=== PATIENT | male | born 1965 | race Caucasian/White ===

== ENCOUNTER → 2016-11-27 | Outpatient (CLI) | payer OTHER ==
--- NOTE | 2016-11-27 11:07 | US ---
EXAMINATION TYPE: US abdomen complete DATE OF EXAM: 11/27/2016 10:26 AM COMPARISON: NONE CLINICAL HISTORY: R94.5 Increased Liver Function. h/o diabetes, high BP and high cholesterol EXAM MEASUREMENTS: Liver Length: 18.1 cm Gallbladder Wall: 0.2 cm CBD: 0.4 cm Spleen: 10.5 cm Right Kidney: 13.4 x 5.3 x7.0 cm Left Kidney: 14.0 x 7.7 x 6.5 cm cm TECHNOLOGIST IMPRESSION: minimally enlarged, attenuating liver parenchyma indicative of fatty infilt rate. Pancreas: Obscured by bowel gas Liver: Increased attenuation, decreased visualization of vessels suggestive of fatty infiltrate Gallbladder: No stones seen Evidence for sonographic Agarwal's sign: no CBD: wnl Spleen: wnl Right Kidney: No hydronephrosis or masses seen Left Kidney: No hydronephrosis or masses seen Upper IVC: not well visualized Abd Aorta: Obscured by overlying bowel gas The visualized liver is heterogeneous. No worrisome intrahepatic ductal dilatation is seen. Evaluatio n for masses is limited due to the heterogeneity. The intrahepatic portion of the IVC and proximal ab dominal aorta are within normal limits. There is no evidence of cholelithiasis. Common bile duct is unremarkable. The visualized portions of the pancreas are blanca. Majority of pancreas is obscured by overlying bowel gas. The spleen is unremarkable. Kidneys are symmetric and free of hydronephrosis . No renal lesions are seen. IMPRESSION: Heterogeneity of liver could reflect diffuse fatty infiltration or product of underlying hepatocellular disease. Imaging guided random biopsy for tissue analysis can be performed if desired.
== END | disposition home or self-care (01) ==
LOC: RADUSWWP 10:00
PROVIDERS: ATTEND Family Medicine
DX: R94.5 Abnormal results of liver function studies (principal)
CPT/HCPCS: 76700

== ENCOUNTER → 2017-02-23 | Outpatient (CLI) | payer OTHER ==
--- NOTE | 2017-02-23 13:08 | XR ---
Cervical spine Limited HISTORY: Shoulder pain 3 views of the cervical spine on 4 images No comparisons There is loss of normal cervical lordosis. Anterolisthesis grade 1 C2-3, C3-4, C4-5 and C5-6.. Disc s paces are relatively maintained, mild disc height loss at C5-6. Prevertebral soft tissues are normal. IMPRESSION: Degenerative disc disease. Loss of lordosis may be due to muscle spasm.
== END | disposition home or self-care (01) ==
LOC: RADXRMAIN 12:21
PROVIDERS: ATTEND Family Medicine
DX: M50.10 Cervical disc disorder with radiculopathy, unspecified cervical region (principal); M40.56 Lordosis, unspecified, lumbar region
CPT/HCPCS: 72040

== ENCOUNTER → 2017-10-05 | Outpatient (CLI) | payer OTHER ==
--- NOTE | 2017-10-05 09:18 | US ---
EXAMINATION TYPE: US prostate transrectal DATE OF EXAM: 10/05/2017 COMPARISON: NONE CLINICAL HISTORY: R97.20 elevated PSA. This examination was performed using the transrectal probe. EXAM MEASUREMENTS: Gland Size: 5.1 x 2.8 x 5.0cm Volume: 36.7 Predicted PSA: 4.4 Actual PSA (if available):4.1 Heterogeneous gland, no distinct mass seen. IMPRESSION: Glandular enlargement without suspicious lesion identified at this time. Predicted PSA = volume x 0.12 ng/ml Calculated Volume = 0.5236 x L x W x H
== END | disposition home or self-care (01) ==
LOC: RADUSMAIN 07:43
PROVIDERS: ATTEND Family Medicine
DX: N40.0 Benign prostatic hyperplasia without lower urinary tract symptoms (principal)
CPT/HCPCS: 76872

== ENCOUNTER 2017-10-07 06:57 | Day surgery (SDC) | payer OTHER ==
[2017-10-05 14:11] VITALS: BMI 30.8
[~2017-10-07 06:57] MED LIST: LACTATED RINGERS 1,000 ML IV SCH; LIDOCAINE 1% 20 ML VIAL (10MG/ML) FOR IV START INTRADERMA PRN
[2017-10-07 07:36] VITALS: RESP 16; TEMP 97.1
[2017-10-07] MEDS ORDERED: LIDOCAINE 1% 20 ML VIAL (10MG/ML) FOR IV START INTRADERMA ONE (07:52)
[2017-10-07] MEDS ORDERED: PROPOFOL 10 MG/ML 20 ML VIAL IV ONE (07:55)
[2017-10-07] MEDS ORDERED: MIDAZOLAM 2 MG/2 ML VIAL ONE (07:55)
[2017-10-07] MEDS ORDERED: fentaNYL (PF) 50 MCG/ML 2 ML AMP ONE (07:55)
[2017-10-07 07:57] LABS: Glucose,Whole Blood 88 mg/dL (75-99)
--- NOTE | 2017-10-07 08:11 | P.PCN ---
Date of Procedure: 10/07/17 Procedure(s) Performed: BRIEF HISTORY: Patient is a 52-year-old pleasant white male, scheduled for an elective colonoscopy as a part of screening for colonic neoplasia. PROCEDURE PERFORMED: Colonoscopy. PREOPERATIVE DIAGNOSIS: Screening for colon cancer. IV sedation per Anesthesia. PROCEDURE: After informed consent was obtained, the patient, was brought into the endoscopy unit. IV sedation was administered by Anesthesia under continuous monitoring. Digital rectal examination was normal. Initially the Olympus CF- 160 flexible video colonoscope was then inserted in the rectum, gradually advanced into the cecum without any difficulty. Careful examination was performed as the scope was gradually being withdrawn. Ileocecal valve and the appendiceal orifice were visualized and appeared normal. Prep was excellent. Mucosa of the cecum, ascending colon, transverse colon, descending colon, sigmoid colon, and rectum appeared normal. Retroflexion was performed in the rectum and no lesions were seen. The patient tolerated the procedure well. IMPRESSION: Normal-appearing colon from rectum to cecum with no evidence of colorectal neoplasia. RECOMMENDATIONS: Findings of this examination were discussed with the patient as well as his family. He was advised to have a repeat screening colonoscopy in 10 years.
[2017-10-07 08:34] VITALS: BP 123/81; PULSE 68
== END 2017-10-07 08:57 | disposition home or self-care (01) ==
LOC: ORWHC2ENDO 06:57
PROVIDERS: ATTEND Internal Medicine Gastroenterology
DX: Z12.11 Encounter for screening for malignant neoplasm of colon (principal); I10 Essential (primary) hypertension; E11.9 Type 2 diabetes mellitus without complications; E78.5 Hyperlipidemia, unspecified; F17.210 Nicotine dependence, cigarettes, uncomplicated; K21.9 Gastro-esophageal reflux disease without esophagitis; Z79.899 Other long term (current) drug therapy; Z79.84 Long term (current) use of oral hypoglycemic drugs
CPT/HCPCS: J2250; J3010; J2704; G0121

== ENCOUNTER → 2017-10-09 | Outpatient (CLI) | payer OTHER ==
--- NOTE | 2017-10-09 14:37 | MR ---
EXAMINATION TYPE: MR cervical spine wo con DATE OF EXAM: 10/09/2017 COMPARISON: Plain film 02/23/2017 HISTORY: Radiculopathy Cervical region TECHNIQUE: Multiplanar, multisequence images of the cervical spine were acquired. C2-C3: No evidence for degenerative disc disease. No disc bulge/herniation or protrusion. No Canal stenosis. Foramina are patent bilaterally. C3-C4: Right-sided foraminal encroachment is present due to lateral extension endplate disc complex. Broad-based disc bulge causes only mild anterior mass effect on the thecal sac. C4-C5: Small central posterior disc bulge causes slight anterior mass effect on the thecal sac. No si gnificant foraminal encroachment. C5-C6: Lateral extension of endplate disc complex causes mild bilateral foraminal encroachment. Small central disc bulge causes only minimal anterior mass effect on the thecal sac. C6-C7: Mild bilateral foraminal encroachment is present. No significant central stenosis or sizable d isc herniation. C7-T1: No evidence for degenerative disc disease. No disc bulge/herniation or protrusion. No Canal stenosis. Foramina are patent bilaterally. Cervical segments are intact. There is normal alignment. Cervical spinal cord is of normal signal. Craniovertebral junction relationships are within normal limits. There is multilevel spondylosis. S ome endplate discogenic marrow signal changes noted. IMPRESSION: Mild degenerative disc disease as described.
== END | disposition home or self-care (01) ==
LOC: RADMRIMAIN 09:35
PROVIDERS: ATTEND Family Medicine
DX: M50.10 Cervical disc disorder with radiculopathy, unspecified cervical region (principal)
CPT/HCPCS: 72141

== ENCOUNTER → 2019-06-10 | Outpatient (CLI) | payer OTHER ==
[~2019-06-10] MED LIST changes: -LACTATED RINGERS 1,000 ML IV SCH; -LIDOCAINE 1% 20 ML VIAL (10MG/ML) FOR IV START INTRADERMA PRN; +REGADENOSON 0.4 MG/5 ML SYRINGE IV ONE
--- NOTE | 2019-06-10 12:05 | NM ---
EXAMINATION TYPE: NM stress lexiscan cardiolite DATE OF EXAM: 06/10/2019 COMPARISON: NONE HISTORY: Chest pain TECHNIQUE: After the intravenous administration of 9.5 mCi Tc 99m Sestamibi - Cardiolite resting SPE CT images acquired 60 minutes post injection. The patient received 0.4mg Lexiscan, 26.4 mCi Tc 99m Sestamibi - Stress images obtained [address] injection FINDINGS: Review of stress and rest SPECT images demonstrates no distinct perfusion abnormality. Gated analysi s shows normal wall motion with an estimated left ventricular ejection fraction of 60 %. IMPRESSION: No scintigraphic evidence for reversible ischemia.
--- NOTE | 2019-06-10 12:06 | EST ---
EXERCISE STRESS AGE: 54 SEX: M HT: 5'10" WT: 235 PROTOCOL: Lexiscan Cardiolite Stress Test HEART RATE REST: 60 BLOOD PRESSURE REST: 136/77 MAXIMUM HEART RATE ACHIEVED: 90 MAXIMUM BLOOD PRESSURE: 142/75 85% MPHR: 142 100% MPHR: 167 INDICATIONS: Chest pain. CLINICAL INFORMATION: Baseline rhythm is sinus mechanism, rate of 60, normal axis intervals, normal echocardiogram. Baseline blood pressure 136/77 mmHg. Patient received an injection of Lexiscan. Electrocardiograph monitoring revealed no evidence of diagnostic ischemic ST deviation. Cardiolite was injected per protocol. CONCLUSION: 1. Nondiagnostic electrocardiograph stress testing. 2. Nuclear images will be reported separately. MMODL / IJN: [id number] /
== END ==
LOC: RADNMMAIN 07:45
PROVIDERS: ATTEND Family Medicine
DX: R07.9 Chest pain, unspecified (principal)
CPT/HCPCS: 93017; 78452; A9500; J2785

== ENCOUNTER 2020-11-24 22:39 | Emergency (ER) | payer OTHER ==
[2020-11-24 22:44] VITALS: BP 168/96; PULSE 82; RESP 18; TEMP 98.3
[2020-11-24] MEDS ORDERED: ACET/COD 300 MG/30 MG STARTER PACK 6 TAB BTL PO STA (23:22)
[2020-11-24] MEDS ORDERED: KETOROLAC 15 MG/ML 1 ML VIAL IM STA (23:22)
--- NOTE | 2020-11-24 23:45 | ED ---
ENT HPI - General Chief complaint: Dental/Oral Stated complaint: Tooth pain Time Seen by Provider: 11/24/20 22:51 Source: patient Mode of arrival: ambulatory Limitations: no limitations - History of Present Illness Initial comments: Patient is a 55-year-old male presenting to emergency Department with complaints of lower left-sided dental pain that began increasing throughout today. Patient states he had a root canal done on Thursday, 4 days ago, they stated that there was an infection in there and gave him a prescription for amoxicillin to start if he started having some discomfort. Patient states he just started that prescription today. He states he tried Tylenol and Motrin at home without improvement in his symptoms. He did try called his dentist over their close until Thursday. He denies any fever or chills, no nausea or vomiting. He has no further complaints. - Related Data Home Medications Medication Instructions Recorded Confirmed Atorvastatin [Lipitor] 20 mg PO HS 08/23/14 10/05/17 Meloxicam [Mobic] 15 mg PO DAILY 08/23/14 10/05/17 Omeprazole [PriLOSEC] 40 mg PO HS 08/23/14 10/05/17 Empagliflozin [Jardiance] 25 mg PO DAILY 10/05/17 10/05/17 Losartan [Cozaar] 50 mg PO HS 10/05/17 10/05/17 sitaGLIPtin PHOS/metFORMIN HCL 1 each PO BID-W/MEALS 10/05/17 10/05/17 [Janumet 50-1,000 mg Tablet] Previous Rx's Medication Instructions Recorded HYDROcodone/APAP 5-325MG [[place] 1 tab PO Q6HR PRN 3 Days #12 tab 11/24/20 5-325] Allergies Allergy/AdvReac Type Severity Reaction Status Date / Time No Known Allergies Allergy Verified 11/24/20 22:44 Review of Systems ROS Statement: Those systems with pertinent positive or pertinent negative responses have been documented in the HPI. ROS Other: All systems not noted in ROS Statement are negative. Past Medical History Past Medical History: Diabetes Mellitus, GERD/Reflux, Hearing Disorder / Deafness, Hyperlipidemia, Hypertension, Osteoarthritis (OA) Additional Past Medical History / Comment(s): HEARING LOSS RT EAR. History of Any Multi-Drug Resistant Organisms: None Reported Past Surgical History: Orthopedic Surgery Additional Past Surgical History / Comment(s): LT KNEE ARTHROSCOPY Past Anesthesia/Blood Transfusion Reactions: No Reported Reaction Past Psychological History: No Psychological Hx Reported Smoking Status: Never smoker Past Alcohol Use History: Occasional Past Drug Use History: None Reported - Past Family History Father Family Medical History: Deep Vein Thrombosis (DVT), Hypertension Mother Family Medical History: Cancer, Diabetes Mellitus, Memory Impairment General Exam - General Exam Comments Initial Comments: GENERAL: Patient is well-developed and well-nourished. Patient is nontoxic and in no acute distress. HEAD: Atraumatic, normocephalic. EYES: Pupils equal round and reactive to light, extraocular movements intact, sclera anicteric, conjunctiva are normal. Eyelids were unremarkable. ENT: Nares patent, oropharynx clear without exudates. Moist mucous membranes. Recent dental procedure on left lower tooth, no signs of a dental abscess. NECK: Normal range of motion, supple without lymphadenopathy or JVD. LUNGS: Unlabored respirations. Breath sounds clear to auscultation bilaterally and equal. No wheezes rales or rhonchi. HEART: Regular rate and rhythm without murmurs, rubs or gallops. ABDOMEN: Soft, nontender, normoactive bowel sounds. No guarding, no rebound. No masses appreciated. : Deferred MUSCULOSKELETAL: Normal extremities with adequate strength and normal range of motion, no pitting or edema. No clubbing or cyanosis. NEUROLOGICAL: Patient is alert and oriented x 3. Normal speech, normal gait. PSYCH: Normal mood, normal affect. SKIN: Warm, Dry, normal turgor, no rashes or lesions noted. Limitations: no limitations Course Vital Signs 11/24/20 22:40 Temperature 98.3 F Pulse Rate 82 Respiratory 18 Rate Blood Pressure 168/96 O2 Sat by Pulse 96 Oximetry Medical Decision Making - Medical Decision Making Patient is a 55-year-old male here for left lower dental pain has been increasing throughout today. He had root canal performed 4 days ago, he was started on amoxicillin today for possible infection. There are no visible dental abscess seen on exam. I discussed with patient that he should continue with amoxicillin, I will give him a Toradol shot today for pain as well as pain medication to go home with. I recommend following up with his dentist on Thursday. Patient is stable for discharge. Patient is in agreement with this plan of care. Return parameters were discussed with the patient and they verbalized understanding. Case discussed with Dr. Conde. Disposition Clinical Impression: Toothache Disposition: HOME SELF-CARE Condition: Stable Instructions (If sedation given, give patient instructions): Toothache (ED) Additional Instructions: Please return to the Emergency Department if symptoms worsen or any other concerns. Continue with your already prescribed antibiotic. Recommend ice the area, alternate between Tylenol and Motrin for pain relief. May take [place] for more severe pain. Follow-up with your dentist. Prescriptions: HYDROcodone/APAP 5-325MG [[place] 5-325] 1 tab PO Q6HR PRN 3 Days #12 tab PRN Reason: Pain Is patient prescribed a controlled substance at d/c from ED?: Yes When asked, does pt state using other controlled substances?: No If prescribed controlled substance>3 days was MAPS reviewed?: Prescribed <3 Days If opioid is for acute pain is fill amount 7 days or less?: Yes If Rx opioid, was Start Talking consent form obtained?: Yes Referrals: Andrea Birmingham MD [Primary Care Provider] - 1-2 days
== END 2020-11-25 00:01 | disposition home or self-care (01) ==
LOC: EC 22:39
DX: K08.89 Other specified disorders of teeth and supporting structures (principal); I10 Essential (primary) hypertension; E11.9 Type 2 diabetes mellitus without complications; K21.9 Gastro-esophageal reflux disease without esophagitis; M19.90 Unspecified osteoarthritis, unspecified site; E78.5 Hyperlipidemia, unspecified; H91.91 Unspecified hearing loss, right ear; Z79.1 Long term (current) use of non-steroidal anti-inflammatories (NSAID); Z79.899 Other long term (current) drug therapy; Z79.84 Long term (current) use of oral hypoglycemic drugs
CPT/HCPCS: 99283; 96372; J1885

== ENCOUNTER → 2020-12-21 | Outpatient (CLI) | payer BC ==
--- NOTE | 2020-12-23 14:10 | US ---
EXAMINATION TYPE: US prostate transrectal DATE OF EXAM: 12/21/2020 COMPARISON: US CLINICAL HISTORY: R97.20 elevated PS;. Night time frequency per patient. This examination was performed using the transrectal probe. EXAM MEASUREMENTS: Gland Size: 4.9 x 4.3 x 4.0cm Volume: 44.3ml Predicted PSA: 5.31ng/ml Actual PSA (if available):6.7ng/ml Enlarged prostate is noted as volume is >30.0ml. Multiple Central Gland calcifications are seen. Cent ral Gland cyst is seen = 0.5 x 0.5 x 0.3cm. In Peripheral Zone left Base a small area of ectasia is n oted. Predicted PSA value is less than the actual PSA which can be suspicious for prostate cancer. IMPRESSION: 1. Hypoechoic area within the central gland region may be suspicious. Additional workup for prostate cancer is recommended. Predicted PSA = volume x 0.12 ng/ml Calculated Volume = 0.5236 x L x W x H
== END | disposition home or self-care (01) ==
LOC: RADUSWWP 08:49
PROVIDERS: ATTEND Nurse Practitioner Adult Health
DX: C61 Malignant neoplasm of prostate (principal)
CPT/HCPCS: 76872

== ENCOUNTER 2021-06-07 07:33 | Day surgery (SDC) | payer BC ==
[2021-06-04 15:19] VITALS: BMI 33.7
[~2021-06-07 07:33] MED LIST changes: +LACTATED RINGERS 1,000 ML IV SCH; -REGADENOSON 0.4 MG/5 ML SYRINGE IV ONE
[2021-06-07 08:05] LABS: Glucose,Whole Blood 131 mg/dL (75-99)
[2021-06-07 08:07] VITALS: TEMP 97
--- NOTE | 2021-06-07 08:29 | P.GSHP ---
History of Present Illness H&P Date: 06/07/21 Chief Complaint: GERD This a 56-year-old male presents safer EGD. Patient has had complaints of GERD. Past Medical History Past Medical History: Diabetes Mellitus, GERD/Reflux, Hearing Disorder / Deafness, Hyperlipidemia, Hypertension, Osteoarthritis (OA), Pneumonia Additional Past Medical History / Comment(s): HEARING LOSS RT EAR, hx ulcer, hiatal hernia, History of Any Multi-Drug Resistant Organisms: None Reported Past Surgical History: Joint Replacement, Orthopedic Surgery Additional Past Surgical History / Comment(s): LT KNEE ARTHROSCOPY, left hip replacement, Past Anesthesia/Blood Transfusion Reactions: No Reported Reaction Smoking Status: Former smoker - Past Family History Father Family Medical History: Deep Vein Thrombosis (DVT) Mother Family Medical History: Cancer, Diabetes Mellitus, Memory Impairment Medications and Allergies Home Medications Medication Instructions Recorded Confirmed Type Atorvastatin [Lipitor] 20 mg PO QAM 08/23/14 06/04/21 History Omeprazole [PriLOSEC] 40 mg PO HS 08/23/14 06/04/21 History Empagliflozin [Jardiance] 25 mg PO HS 10/05/17 06/04/21 History Losartan [Cozaar] 50 mg PO HS 10/05/17 06/04/21 History sitaGLIPtin PHOS/metFORMIN HCL 1 each PO BID-W/MEALS 10/05/17 06/04/21 History [Janumet 50-1,000 mg Tablet] Celecoxib [CeleBREX] 100 mg PO BID 06/04/21 06/04/21 History Diclofenac Sodium [Voltaren] 75 mg PO HS 06/04/21 06/04/21 History Gabapentin 300 mg PO HS 06/04/21 06/04/21 History traMADol HCL [Ultram] 50 mg PO HS PRN 06/04/21 06/04/21 History Allergies Allergy/AdvReac Type Severity Reaction Status Date / Time No Known Allergies Allergy Verified 06/04/21 15:06 Surgical - Exam Vital Signs Temp Pulse Resp BP Pulse Ox 97.0 F L 67 15 157/90 95 06/07/21 07:55 06/07/21 07:55 06/07/21 07:55 06/07/21 07:55 06/07/21 07:55 - General well developed, well nourished, no distress - Eyes PERRL - ENT normal pinna - Neck no masses - Respiratory normal expansion - Cardiovascular Rhythm: regular - Abdomen Abdomen: soft, non tender Results - Labs Abnormal Lab Results - Last 24 Hours (Table) 06/07/21 Range/Units 08:02 POC Glucose (mg/dL) 131 H (75-99) mg/dL Assessment and Plan Assessment: GERD. We'll perform EGD.
[2021-06-07] MEDS ORDERED: PROPOFOL 10 MG/ML 20 ML VIAL IV ONE (08:32)
--- NOTE | 2021-06-07 08:41 | P.OP ---
Date of Procedure: 06/07/21 Preoperative Diagnosis: GERD Postoperative Diagnosis: Antral gastritis Sliding hiatal hernia Mild esophagitis Procedure(s) Performed: EGD Anesthesia: MAC Surgeon: Karl Meza Pathology: other (Antrum, esophagus) Condition: stable Disposition: PACU Description of Procedure: The patient's placed on the endoscopy table in the lateral position. He received IV sedation. The gastroscope placed oropharynx past esophagus and stomach. Scope then placed through the pylorus. First and second portion du odenum appeared normal. Scope was then brought back the antrum this appeared mildly inflamed. A biopsies performed. The scope was unretroflexed and remainder of the stomach appeared normal. There was a small sliding hiatal hernia. The GE junction was at 38 cm. The distal esophagus inflamed. A biopsy performed. The proximal esophagus appeared normal. Scope was withdrawn for patient.
[2021-06-07 08:48] VITALS: RESP 16
[2021-06-07 09:12] VITALS: BP 133/85; PULSE 61
== END 2021-06-07 09:30 | disposition home or self-care (01) ==
LOC: ORWHC2ENDO 07:33
PROVIDERS: ATTEND Surgery
DX: K21.00 Gastro-esophageal reflux disease with esophagitis, without bleeding (principal); K31.9 Disease of stomach and duodenum, unspecified; K44.9 Diaphragmatic hernia without obstruction or gangrene; M19.90 Unspecified osteoarthritis, unspecified site; I10 Essential (primary) hypertension; H91.90 Unspecified hearing loss, unspecified ear; E11.9 Type 2 diabetes mellitus without complications; Z79.84 Long term (current) use of oral hypoglycemic drugs; E78.5 Hyperlipidemia, unspecified; Z79.1 Long term (current) use of non-steroidal anti-inflammatories (NSAID); Z83.3 Family history of diabetes mellitus; Z87.891 Personal history of nicotine dependence; Z79.899 Other long term (current) drug therapy
CPT/HCPCS: 43239; 88305; J2704

== ENCOUNTER → 2021-06-13 | Outpatient (CLI) | payer BC ==
[2021-06-13 17:22] LABS: Basophils # (A) 0.1 k/uL (0-0.2); Basophils % (A) 1 %; Eosinophils # (A) 0.4 k/uL (0-0.7); Eosinophils % (A) 5 %; HGB 17.3 gm/dL (13.0-17.5); Lymphocytes # (A) 2.8 k/uL (1.0-4.8); Lymphocytes % (A) 37 %; MCHC 33.2 g/dL (31.0-37.0); MCV 96.3 fL (80.0-100.0); Monocytes # (A) 0.6 k/uL (0-1.0); Monocytes % (A) 8 %; Neutrophils # (A) 3.6 k/uL (1.3-7.7); Neutrophils % (A) 46 %; Platelet Count 260 k/uL (150-450); RDW 12.1 % (11.5-15.5); WBC 7.7 k/uL (3.8-10.6)
== END | disposition home or self-care (01) ==
LOC: LABPAT 16:25
PROVIDERS: ATTEND Surgery
DX: Z01.818 Encounter for other preprocedural examination (principal); K21.00 Gastro-esophageal reflux disease with esophagitis, without bleeding
CPT/HCPCS: 85025; 86850; 86900; 86901; 93005

== ENCOUNTER 2021-06-18 07:33 | Inpatient (IN) | payer BC ==
[~2021-06-18 07:33] MED LIST changes: +ACETAMINOPHEN TAB 500 MG TAB PO PRN; +DEXAMETHASONE SOD PHOSPHATE 4 MG/ML 1 ML VIAL IV ONE; +HEPARIN SODIUM,PORCINE/PF 5,000 UNIT/0.5 ML SYRINGE SQ PRN; +HYDROmorphone 0.5 MG/0.5 ML SYRINGE IVP PRN; -LACTATED RINGERS 1,000 ML IV SCH; +ONDANSETRON 4 MG/2 ML VIAL IVP ONE
[2021-06-18 08:23] LABS: Glucose,Whole Blood 153 mg/dL (75-99)
[2021-06-18] MEDS: LACTATED RINGERS 1,000 ML IV SCH (08:23)
[2021-06-18] MEDS ORDERED: LIDOCAINE 1% (10MG/ML) FOR IV START INTRADERMA ONE (08:23)
--- NOTE | 2021-06-18 09:20 | P.GSHP ---
History of Present Illness H&P Date: 06/18/21 Chief Complaint: GERD This a 56-year-old male referred from Dr. Birmingham.The patient has had long- standing problems with reflux esophagitis. The patient underwent recent EGD is found have evidence of esophagitis. Patient has been well informed on the proce dure of laparoscopic Jeramie fundoplication. The patient is aware the risk of the conversion to the open procedure, risk of injury to the stomach, liver and spleen. The patient is also a risk of recurrent GERD and dysphagia symptoms. The patient understands there is a postoperative diet of full liquids for 2 weeks after surgery. Past Medical History Past Medical History: Diabetes Mellitus, GERD/Reflux, Hearing Disorder / Deafness, Hyperlipidemia, Hypertension, Osteoarthritis (OA), Pneumonia Additional Past Medical History / Comment(s): HEARING LOSS RT EAR, hx ulcer, hiatal hernia, History of Any Multi-Drug Resistant Organisms: None Reported Past Surgical History: Joint Replacement, Orthopedic Surgery Additional Past Surgical History / Comment(s): LT KNEE ARTHROSCOPY, left hip replacement, EGD Past Anesthesia/Blood Transfusion Reactions: No Reported Reaction Smoking Status: Former smoker - Past Family History Father Family Medical History: Deep Vein Thrombosis (DVT) Mother Family Medical History: Cancer, Diabetes Mellitus, Memory Impairment Medications and Allergies Home Medications Medication Instructions Recorded Confirmed Type Atorvastatin [Lipitor] 20 mg PO QAM 08/23/14 06/18/21 History Omeprazole [PriLOSEC] 40 mg PO HS 08/23/14 06/18/21 History Empagliflozin [Jardiance] 25 mg PO DAILY 10/05/17 06/18/21 History Losartan [Cozaar] 50 mg PO HS 10/05/17 06/18/21 History sitaGLIPtin PHOS/metFORMIN HCL 1 each PO BID-W/MEALS 10/05/17 06/18/21 History [Janumet 50-1,000 mg Tablet] Celecoxib [CeleBREX] 100 mg PO DAILY 06/04/21 06/18/21 History Diclofenac Sodium [Voltaren] 75 mg PO HS 06/04/21 06/18/21 History Gabapentin 300 mg PO HS 06/04/21 06/18/21 History traMADol HCL [Ultram] 50 mg PO HS PRN 06/04/21 06/18/21 History Allergies Allergy/AdvReac Type Severity Reaction Status Date / Time No Known Allergies Allergy Verified 06/14/21 14:34 Surgical - Exam Vital Signs Temp Pulse Resp BP Pulse Ox 96.0 F L 74 16 147/93 98 06/18/21 08:16 06/18/21 08:16 06/18/21 08:16 06/18/21 08:16 06/18/21 08:16 - General well developed, well nourished, no distress - Eyes PERRL - ENT normal pinna - Neck no masses - Respiratory normal expansion - Cardiovascular Rhythm: regular - Abdomen Abdomen: soft, non tender Results - Labs Abnormal Lab Results - Last 24 Hours (Table) 06/18/21 Range/Units 08:20 POC Glucose (mg/dL) 153 H (75-99) mg/dL Assessment and Plan Assessment: GERD. We'll perform laparoscopic Jeramie fundal plication.
[2021-06-18] MEDS ORDERED: GLYCOPYRROLATE 0.2 MG/ML 2 ML VIAL ONE (09:46)
[2021-06-18] MEDS ORDERED: PROPOFOL 10 MG/ML 20 ML VIAL IV ONE (09:46)
[2021-06-18] MEDS ORDERED: fentaNYL (PF) 50 MCG/ML 2 ML AMP ONE (09:46)
[2021-06-18] MEDS ORDERED: MIDAZOLAM 2 MG/2 ML VIAL ONE (09:46)
[2021-06-18] MEDS ORDERED: KETOROLAC 15 MG/ML 1 ML VIAL ONE (09:46)
[2021-06-18] MEDS ORDERED: LIDOCAINE 1% INJ 10MG/ML (20 ML MDV) ONE (09:46)
[2021-06-18] MEDS ORDERED: SUCCINYLCHOLINE CHLORIDE 100 MG/5 ML SYR IV ONE (09:46)
[2021-06-18] MEDS ORDERED: KETAMINE 10 MG/ML 20 ML VIAL ONE (09:46)
[2021-06-18] MEDS ORDERED: NEOSTIGMINE 1 MG/ML 10 ML VIAL ONE (09:46)
[2021-06-18] MEDS ORDERED: ROCURONIUM 10 MG/ML (5 ML VIAL) IV ONE (09:46)
[2021-06-18] MEDS ORDERED: HYDROmorphone (PF) 1 MG/ML ONE (09:46)
[2021-06-18] MEDS ORDERED: BUPIVACAINE (PF) 0.25% 30 ML VIAL SQ ONE (10:12)
[2021-06-18] MEDS ORDERED: LACTATED RINGERS 1,000 ML IV ONE (10:18)
[2021-06-18] MEDS ORDERED: ONDANSETRON 4 MG/2 ML VIAL IVP PRN (10:57)
--- NOTE | 2021-06-18 10:57 | P.OP ---
Date of Procedure: 06/18/21 Preoperative Diagnosis: GERD Postoperative Diagnosis: GERD Procedure(s) Performed: Laparoscopic Jeramie fundoplication Anesthesia: SHIRA Surgeon: Karl Meza Estimated Blood Loss (ml): 5 Pathology: none sent Condition: stable Disposition: PACU Description of Procedure: The patient was placed on the operating table. The patient received a general endotracheal tube anesthesia. The patients abdomen was prepped and draped in the usual sterile fashion. Through an infraumbilical stab incision, the fascia of the anterior abdominal wall was grasped with a pair of Kochers and then the Veress needle was placed in the peritoneal cavity. Position of the Veress needle was confirmed with positive drop test. The abdomen was then insufflated. After adequate insufflation, the 10 mm trocar was placed in the peritoneal cavity. Following this the laparoscope was placed in the peritoneal cavity. The patient was placed in the head-up, right side up position and then a 5 mm trocar was placed in the right lateral and right subcostal position under direct visualization. A 8 mm trocar was placed in the epigastric position. The gallbladder was grasped in the fundus and infundibulum. Traction on the gallbladder was placed in the lateral and the cephalad positions. The triangle of Calot was visualized.. The cystic duct was bluntly dissected until the union of the cystic duct and common bile duct was seen. A critical view of safety was achieved. The cystic duct was then divided and sealed with the Harmonic scissors. A PDS Endoloop was then placed throughout the cystic duct stump. The cystic artery divided and sealed with the Harmonic scissors. The gallbladder was then removed from the liver bed using Harmonic scissors. The gallbladder was then extracted through the epigastric port site. Operative field was checked for any bleeding spots and Harmonic scissors was used to coagulate the liver bed. The abdomen was irrigated. The trocars were removed. The skin was closed using interrupted 3-0 Vicryl suture. Dermabond dressing were applied. The patient tolerated the procedure well.
[2021-06-18] MEDS ORDERED: D5-0.45% NACL WITH KCL 20MEQ/L 1,000 ML IV SCH (13:00)
[2021-06-18] MEDS: METOCLOPRAMIDE 5 MG/ML 2 ML VIAL IVP SCH ×2 (13:21→18:11)
--- NOTE | 2021-06-18 13:26 | P.CONS ---
History of Present Illness - Reason for Consult Consult date: 06/18/21 Medical Management Requesting physician: Karl Meza - History of Present Illness History of Presenting Illness: Patient is a 56-year-old male with a past medical history of hypertension, hyperlipidemia, [id number] diabetes mellitus type 2, GERD, and reflux esophagitis. Patient is currently admitted under Gen. surgery team with Dr. Meza status post undergoing a laparoscopic Irineo fundoplication. We have been consulted to follow along with patient for continued medical management. Upon bedside examination patient currently postoperative and reports feeling great. He denies having any pains or complaints. He denies having any difficulties swallowing, experiencing any nausea or vomiting, or having any abd ominal pain. Patient has been tolerating clear liquids. Patient denies history of DVTs or PEs. Denies any recent fevers or exposure to known ill contacts, diaphoresis, chills, headache, lightheadedness, dizziness, chest pain, palpitations, shortness of breath, or experiencing any numbness/tingling/weakness in his extremities. Review of systems: Pertinent positives and negatives as discussed in HPI, a complete review of systems was performed and all other systems are negative. Physical exam: Vital signs reviewed and stable. General: Nontoxic, no distress and appears stated age. Derm: Skin warm and dry, normal coloration for ethnicity. Head: Atraumatic, normocephalic and symmetric. Eyes: EOMs intact, no lid lag, and anicteric sclera Mouth: no lip lesions, mucus membranes moist Cardiovascular: regular rate and rhythm with normal S1S2, no murmur, positive posterior tibial pulses bilaterally, and cap refill < 2 seconds. Lungs: Respirations even, regular, and unlabored on room air. Lungs CTA bilaterally, no rhonchi, no rales, no wheezing, and no accessory muscle usage. Abdominal: soft, nontender to palpation, no guarding, no appreciable organomegaly. Ext: ROM intact. No gross muscle atrophy, no edema, no contractures Neuro: Speech clear, face symmetrical and CN II-XII grossly intact with no noted focal neuro deficits Psych: Alert and oriented to person, place, time, and situation. Appropriate and pleasant affect. Assessment and Plan of Care: Status post undergoing a laparoscopic Irineo fundoplication secondary to reflux esophagitis -Management per primary admitting general surgery team with Dr. Meza. -DVT prophylaxis with Lovenox. -We will follow along and continue to monitor closely with repeat a.m. labs. Hypertension -Monitor vital signs and continue daily medication regimen with losartan. Hyperlipidemia -Continue daily medication regimen with atorvastatin. Ths-nzzupav-bzfismrdg diabetes mellitus type 2 Hold oral glycemic medications metformin and Jardiance and place patient on glycemic protocol with NovoLog sliding scale. GERD -Continue daily medication regimen with omeprazole 40 mg nightly. Thank you for allowing us to participate in the care of this pleasant patient. Do not hesitate to contact us with questions. Someone can be reached from the [facility] hospitalist group all hours of the day at [phone] or via [employer]. Past Medical History Past Medical History: Diabetes Mellitus, GERD/Reflux, Hearing Disorder / Deafness, Hyperlipidemia, Hypertension, Osteoarthritis (OA), Pneumonia Additional Past Medical History / Comment(s): HEARING LOSS RT EAR, hx ulcer, hiatal hernia, History of Any Multi-Drug Resistant Organisms: None Reported Past Surgical History: Joint Replacement, Orthopedic Surgery Additional Past Surgical History / Comment(s): LT KNEE ARTHROSCOPY, left hip replacement, EGD Past Anesthesia/Blood Transfusion Reactions: No Reported Reaction Smoking Status: Former smoker - Past Family History Father Family Medical History: Deep Vein Thrombosis (DVT) Mother Family Medical History: Cancer, Diabetes Mellitus, Memory Impairment Medications and Allergies Home Medications Medication Instructions Recorded Confirmed Type Atorvastatin [Lipitor] 20 mg PO QAM 08/23/14 06/18/21 History Omeprazole [PriLOSEC] 40 mg PO HS 08/23/14 06/18/21 History Empagliflozin [Jardiance] 25 mg PO DAILY 10/05/17 06/18/21 History Losartan [Cozaar] 50 mg PO HS 10/05/17 06/18/21 History sitaGLIPtin PHOS/metFORMIN HCL 1 each PO BID-W/MEALS 10/05/17 06/18/21 History [Janumet 50-1,000 mg Tablet] Celecoxib [CeleBREX] 100 mg PO DAILY 06/04/21 06/18/21 History Diclofenac Sodium [Voltaren] 75 mg PO HS 06/04/21 06/18/21 History Gabapentin 300 mg PO HS 06/04/21 06/18/21 History traMADol HCL [Ultram] 50 mg PO HS PRN 06/04/21 06/18/21 History Allergies Allergy/AdvReac Type Severity Reaction Status Date / Time No Known Allergies Allergy Verified 06/14/21 14:34 Physical Exam Vitals: Vital Signs Temp Pulse Pulse Resp BP Pulse Ox 06/18/21 11:47 45 L 16 125/79 99 06/18/21 11:32 47 L 16 134/77 98 06/18/21 11:16 45 L 16 123/74 97 06/18/21 11:00 48 L 16 122/68 97 06/18/21 10:54 97.2 F L 55 L 16 155/76 94 L 06/18/21 08:16 96.0 F L 74 16 147/93 98 Intake and Output 06/17/21 06/18/21 06/18/21 22:59 06:59 14:59 Intake Total 1350 Output Total 10 Balance 1340 Intake: IV 1350 Output: Estimated Blood Loss 10 Other: Weight 99 kg Results Labs: Abnormal Lab Results - Last 24 Hours (Table) 06/18/21 Range/Units 08:20 POC Glucose (mg/dL) 153 H (75-99) mg/dL
[2021-06-18 14:29] VITALS: BMI 31.3
[2021-06-18] MEDS: HYDROmorphone 1 MG/ML 1 ML SYRINGE IVP PRN ×2 (15:37→21:50)
[2021-06-18] MEDS: SODIUM CHLORIDE 0.9% 1,000 ML IV SCH (15:38)
--- NOTE | 2021-06-18 15:41 | FL ---
EXAMINATION TYPE: FL esophagus cervic/pharynx DATE OF EXAM: 06/18/2021 LIMITED UGI-ESOPHAGRAM: CLINICAL HISTORY: Hiatal hernia and reflux, Fundoplication surgery earlier today. TECHNIQUE: Limited esophagram is performed utilizing 25 oz of Isovue-370. A total of 10 seconds of f luoroscopic time was utilized during procedure and 13 images obtained. FINDINGS: The patient swallowed contrast without difficulty or delay. Esophageal peristalsis and mo tility are within normal limits. There is good flow of contrast along the diaphragmatic hiatus into t he stomach, there is no evidence of contrast extravasation to suggest leak. No persistent hiatal dick ia is seen. Patient remains asymptomatic. Tiny amount of free air is noted below diaphragm presumed p ostsurgical. IMPRESSION: No evidence of leak or significant obstruction status post Irineo fundoplication surgery earlier today.
[2021-06-18 16:38] LABS: Glucose,Whole Blood 208 mg/dL (75-99)
[2021-06-18] MEDS: INSULIN ASPART (NovoLOG) 100 UNIT/ML VIAL SQ SCH ×2 (18:11→21:52)
[2021-06-18 20:18] LABS: Glucose,Whole Blood 153 mg/dL (75-99)
[2021-06-18] MEDS ORDERED: LOSARTAN 50 MG TAB PO SCH (21:00)
[2021-06-18] MEDS ORDERED: PANTOPRAZOLE 40 MG TABLET PO SCH (21:00)
[2021-06-18] MEDS ORDERED: GABAPENTIN 300 MG CAP PO SCH (21:00)
[2021-06-19] MEDS: METOCLOPRAMIDE 5 MG/ML 2 ML VIAL IVP SCH ×3 (00:34→12:28)
[2021-06-19] MEDS: HYDROmorphone 1 MG/ML 1 ML SYRINGE IVP PRN (05:31)
[2021-06-19 06:44] LABS: ALT 110 U/L (4-49); AST 60 U/L (17-59); African American GFR (CKD) >90 (>60 ml/min/1.73 sqM); Albumin 3.9 g/dL (3.5-5.0); Albumin/Globulin Ratio 1.6; Alkaline Phosphatase 52 U/L (38-126); Anion Gap 11 mmol/L; Blood Urea Nitrogen 14 mg/dL (9-20); Calcium 8.7 mg/dL (8.4-10.2); Carbon Dioxide 23 mmol/L (22-30); Chloride 104 mmol/L (98-107); Globulin 2.4 g/dL; Glucose 117 mg/dL (74-99); Non-African American GFR(CKD) >90 (>60 ml/min/1.73 sqM); Sodium 138 mmol/L (137-145); Total Bilirubin 0.8 mg/dL (0.2-1.3); Total Protein 6.3 g/dL (6.3-8.2)
[2021-06-19 06:51] LABS: Glucose,Whole Blood 114 mg/dL (75-99)
[2021-06-19] MEDS: INSULIN ASPART (NovoLOG) 100 UNIT/ML VIAL SQ SCH ×2 (07:28→11:37)
[2021-06-19] MEDS: SODIUM CHLORIDE 0.9% 1,000 ML IV SCH ×2 (07:32→07:33)
[2021-06-19] MEDS: LACTATED RINGERS 1,000 ML IV SCH (07:32)
[2021-06-19 07:44] VITALS: BP 120/74; PULSE 65; RESP 18; TEMP 98
[2021-06-19] MEDS ORDERED: ATORVASTATIN 20 MG TAB PO SCH (09:00)
[2021-06-19] MEDS ORDERED: ENOXAPARIN 40 MG/0.4 ML SYRINGE SQ SCH (09:00)
[2021-06-19 11:33] LABS: Glucose,Whole Blood 123 mg/dL (75-99)
--- NOTE | 2021-06-19 12:22 | P.PN ---
Subjective Progress Note Date: 06/19/21 Pt doing well s/p fundoplication. No acid reflux symptoms, tolerating PO. Medically cleared for discharge. Objective - Vital Signs Vital signs: Vital Signs Temp 98.0 F 06/19/21 07:44 Pulse 65 06/19/21 07:44 Resp 18 06/19/21 07:44 BP 120/74 06/19/21 07:44 Pulse Ox 96 06/19/21 07:44 Intake & Output 06/18/21 06/19/21 06/19/21 18:59 06:59 18:59 Intake Total 1350 Output Total 10 Balance 1340 Weight 99 kg Intake: IV 1350 Output: Estimated Blood Loss 10 Other: # Voids 1 3 2 - Exam Gen: awake, alert HEENT: normocephalic, atraumatic, good hearing acuity, moist mucous membranes Resp: good air exchange, breathing comfortably with no accessory muscle use CVS: good distal perfusion x 4, GI: soft, NTTP, ND : no SPT, no CVAT, verma catheter not present MSK: no pitting edema, no clubbing Neuro: non-focal, moving all extremities Psych: cooperative, euthymic mood - Labs CBC & Chem 7: 06/19/21 05:33 Labs: Abnormal Lab Results - Last 24 Hours (Table) 06/18/21 06/18/21 06/19/21 Range/Units 16:36 20:16 05:33 Glucose 117 H (74-99) mg/dL POC Glucose (mg/dL) 208 H 153 H (75-99) mg/dL AST 60 H (17-59) U/L ALT 110 H (4-49) U/L 06/19/21 06/19/21 Range/Units 06:49 11:31 Glucose (74-99) mg/dL POC Glucose (mg/dL) 114 H 123 H (75-99) mg/dL AST (17-59) U/L ALT (4-49) U/L Assessment and Plan Assessment: Status post undergoing a laparoscopic Irineo fundoplication secondary to reflux esophagitis -Management per primary admitting general surgery team with Dr. Meza. -DVT prophylaxis with Lovenox. -We will follow along and continue to monitor closely with repeat a.m. labs. Hypertension -Monitor vital signs and continue daily medication regimen with losartan. Hyperlipidemia -Continue daily medication regimen with atorvastatin. Ift-kletdrr-kupysxoyp diabetes mellitus type 2 Hold oral glycemic medications metformin and Jardiance and place patient on glycemic protocol with NovoLog sliding scale. GERD -Continue daily medication regimen with omeprazole 40 mg nightly.
--- NOTE | 2021-06-19 12:33 | P.DS ---
Providers Date of admission: 06/18/21 07:33 Expected date of discharge: 06/19/21 Attending physician: Karl Meza Consults: 06/18/21 10:57 Consult Physician Routine Consulting Provider: Jeannette Jaime Consult Reason/Comments: Medical management Do you want consulting provider notified?: Yes Primary care physician: Andrea Coleman [facility] Course: Discharge diagnosis 1. GERD status post laparoscopic Jeramie fundoplication Hospital course This is a 56-year-old male with known history of GERD he is now status post laparoscopic Jeramie fundoplication. Patient tolerated surgery well. His pain is controlled. Upper GI showed no evidence of leak or obstruction. He is tolerating diet. He is up and ambulating. He is having flatus and BM. He is afebrile. He is stable for discharge. Please refer to chart for any further details. Physician Clinical Nurse Leader note has been reviewed by physician. Signing provider agrees with the documented findings, assessment, and plan of care. Patient Condition at Discharge: Stable Plan - Discharge Summary Discharge Rx Participant: Yes New Discharge Prescriptions: New traMADol HCL [Ultram] 50 mg PO Q8HR PRN 3 Days #9 tab PRN Reason: Pain Continue Omeprazole [PriLOSEC] 40 mg PO HS Atorvastatin [Lipitor] 20 mg PO QAM sitaGLIPtin PHOS/metFORMIN HCL [Janumet 50-1,000 mg Tablet] 1 each PO BID- W/MEALS Losartan [Cozaar] 50 mg PO HS Empagliflozin [Jardiance] 25 mg PO DAILY Gabapentin 300 mg PO HS Discontinued traMADol HCL [Ultram] 50 mg PO HS PRN PRN Reason: Pain No Action Diclofenac Sodium [Voltaren] 75 mg PO HS Celecoxib [CeleBREX] 100 mg PO DAILY Discharge Medication List Atorvastatin [Lipitor] 20 mg PO QAM 08/23/14 [History] Omeprazole [PriLOSEC] 40 mg PO HS 08/23/14 [History] Empagliflozin [Jardiance] 25 mg PO DAILY 10/05/17 [History] Losartan [Cozaar] 50 mg PO HS 10/05/17 [History] sitaGLIPtin PHOS/metFORMIN HCL [Janumet 50-1,000 mg Tablet] 1 each PO BID- W/MEALS 10/05/17 [History] Celecoxib [CeleBREX] 100 mg PO DAILY 06/04/21 [History] Diclofenac Sodium [Voltaren] 75 mg PO HS 06/04/21 [History] Gabapentin 300 mg PO HS 06/04/21 [History] traMADol HCL [Ultram] 50 mg PO Q8HR PRN 3 Days #9 tab 06/19/21 [Rx] Follow up Appointment(s)/Referral(s): Karl Meza MD [STAFF PHYSICIAN] - 1 Week Activity/Diet/Wound Care/Special Instructions: No driving while taking Ultram No lifting over 10 pounds You may shower. No soaking or tub baths for 2 weeks Very light activity until you are reevaluated at your follow up appointment with your surgeon Hold Celebrex and Voltaren until seen by surgeon Discharge Disposition: HOME SELF-CARE
[2021-06-19] MEDS ORDERED: SIMETHICONE 40 MG/0.6 ML DROPS 2,000 MG/30 ML BOTTLE PO SCH (13:00)
--- NOTE | 2021-06-19 16:35 | CDI ---
Documentation Clarification Form Date: 06/19/2021 02:38:00 PM From: Claire Conley RN, CCDS Admit Date: 06/18/2021 07:33:00 AM Patient Name: Cruz Cesar Visit Number: [id number] Discharge Date: 06/19/2021 01:00:00 PM ATTENTION: The Clinical Documentation Specialists (CDI) and [facility] Coding Staff appreciate your assistance in clarifying documentation. Please respond to the clarification below the line at the bottom and electronically sign. The CDI & [facility] Coding staff will review the response and follow-up if needed. Please note: Queries are made part of the Legal Health Record. If you have any questions, please contact the author of this message via ITS. Dr. Karl Meza The gallbladder was removed from the liver bed using Harmonic scissors. The gallbladder was then extracted through the epigastric port site is documented in the Operative Report on 06/18/21. Additional clarification regarding the procedure is requested. History/Risk factors: Diabetes mellitus, GERD, Reflux, Hypertension, hiatal hernia, Former smoker Pre-Operative Diagnosis: GERD Postoperative Diagnosis: GERD Procedure Performed: Laparoscopic Jeramie fundoplication Clinical Indicators: 56-year-old male with past medical history of reflux esophagitis. In description of procedure documentation the cystic duct was bluntly dissected until the union of the cystic duct and common bole duct was seen. The cystic duct was then divided and sealed with Harmonic scissors. the cystic artery divided and sealed with Harmonic scissors. The gallbladder was then removed from the liver bed using Harmonic scissors. The gallbladder was then extracted through the epigastric port site. 06/18 Esophagus cervic/pharynx: No evidence of leak or significant obstruction status post Irineo fundoplication surgery. Treatment: .9NS IV @ 125 HR (06/18-06/19) Reglan 10 MG IVP Q 6 HRS (06/18-06/19) Dilaudid 1 MG IVP PRN Monitor vital signs and continue daily medication regimen with Losartan 50 MG PO HS Monitor close with repeat AM labs 06/19 Please clarify the following: Laparoscopic Jeramie fundoplication and Gallbladder removal per operative report: [ ] Clarify what was removed in relation to Laparoscopic Jeramie fundiolication and indication of gallbladder removal: [ ] Intended and performed procedure (Identify/document why they varied if applicable) [ ] Was the intent of procedure therapeutic or diagnostic (Template Last Revised: November 2020) Wrong operative note template MTDD
== END 2021-06-19 13:00 | disposition home or self-care (01) | DRG 328 ==
LOC: 2ORMAIN 07:33 → 4SSUR 11:54
PROVIDERS: ADMIT Surgery; ATTEND Surgery
PROC: 0DV44ZZ Restriction of Esophagogastric Junction, Percutaneous Endoscopic Approach (ICD-10-PCS; principal; 2021-06-18 09:05)
DX: K21.00 Gastro-esophageal reflux disease with esophagitis, without bleeding (principal); E11.9 Type 2 diabetes mellitus without complications; E78.5 Hyperlipidemia, unspecified; H91.91 Unspecified hearing loss, right ear; Z20.822 Contact with and (suspected) exposure to COVID-19; I10 Essential (primary) hypertension; Z79.1 Long term (current) use of non-steroidal anti-inflammatories (NSAID); Z79.84 Long term (current) use of oral hypoglycemic drugs; Z87.891 Personal history of nicotine dependence; Z96.642 Presence of left artificial hip joint
CPT/HCPCS: 74210; 80053

== ENCOUNTER 2023-10-31 12:11 | Emergency (ER) | payer BC ==
[2023-10-31 12:26] VITALS: TEMP 98.1
--- NOTE | 2023-10-31 12:47 | XR ---
EXAMINATION TYPE: XR chest 2V DATE OF EXAM: 10/31/2023 12:33 PM CLINICAL INDICATION:Male, 58 years old with history of Chest Pain; COMPARISON: Chest radiographs from 10/31/2023. TECHNIQUE: XR chest 2V Frontal and lateral views of the chest. FINDINGS: Lungs/Pleura: There is no evidence of pleural effusion, focal consolidation, or pneumothorax. Pulmonary vascularity: Unremarkable. Heart/mediastinum: Cardiomediastinal silhouette is unremarkable. Musculoskeletal: No acute osseous pathology. Other findings: None IMPRESSION: No acute cardiopulmonary disease/process.
[2023-10-31 12:54] LABS: Basophils # (A) 0.1 k/uL (0-0.2); Basophils % (A) 1 %; Eosinophils # (A) 0.2 k/uL (0-0.7); Eosinophils % (A) 3 %; HCT 53.2 % (39.0-53.0); HGB 17.7 gm/dL (13.0-17.5); Lymphocytes # (A) 2.2 k/uL (1.0-4.8); Lymphocytes % (A) 25 %; MCH 31.4 pg (25.0-35.0); MCHC 33.3 g/dL (31.0-37.0); MCV 94.2 fL (80.0-100.0); Mean Platelet Volume 6.7; Monocytes # (A) 0.6 k/uL (0-1.0); Monocytes % (A) 6 %; Neutrophils # (A) 5.5 k/uL (1.3-7.7); Neutrophils % (A) 63 %; Platelet Count 262 k/uL (150-450); RBC 5.65 m/uL (4.30-5.90); RDW 12.1 % (11.5-15.5); WBC 8.8 k/uL (3.8-10.6)
--- NOTE | 2023-10-31 13:04 | ED ---
Chest Pain HPI - General Chief Complaint: Chest Pain Stated Complaint: SOB/Chest pain, dizziness Source: patient, RN notes reviewed, old records reviewed Mode of arrival: ambulatory Limitations: no limitations - History of Present Illness Initial Comments: This is a 58 male to the ED co chest pain, SOB, weakness, dizziness. Comes from Dr Brown office, room spinning, vertiginous symptoms. Patient is in room spinning chest pain without shortness of breath no travel history no significant sick contacts or other complaints MD Complaint: chest pain -: days(s) Onset: during rest, during exertion Pain Location: substernal, left chest Pain Radiation: LUE Severity: moderate Quality: heaviness Consistency: constant, intermittent Improves With: nothing Worsens With: nothing Anginal Symptoms: nausea, diaphoresis, dyspnea Other Symptoms: burping Treatments Prior to Arrival: none - Related Data Home Medications Medication Instructions Recorded Confirmed Atorvastatin [Lipitor] 20 mg PO QAM 08/23/14 06/18/21 Omeprazole [PriLOSEC] 40 mg PO HS 08/23/14 06/18/21 Empagliflozin [Jardiance] 25 mg PO DAILY 10/05/17 06/18/21 Losartan [Cozaar] 50 mg PO HS 10/05/17 06/18/21 sitaGLIPtin PHOS/metFORMIN HCL 1 each PO BID-W/MEALS 10/05/17 06/18/21 [Janumet 50-1,000 mg Tablet] Gabapentin 300 mg PO HS 06/04/21 06/18/21 Previous Rx's Medication Instructions Recorded traMADol HCL [Ultram] 50 mg PO Q8HR PRN 3 Days #9 tab 06/19/21 Allergies Allergy/AdvReac Type Severity Reaction Status Date / Time No Known Allergies Allergy Verified 10/31/23 12:17 Review of Systems ROS Statement: Those systems with pertinent positive or pertinent negative responses have been documented in the HPI. ROS Other: All systems not noted in ROS Statement are negative. EKG Findings - EKG Comments: EKG Findings:: EKG is sinus 64 NJ 166 QRS 90 QTc 402 - EKG Results: EKG: interpreted by LILI Past Medical History Past Medical History: Diabetes Mellitus, GERD/Reflux, Hearing Disorder / Deafness, Hyperlipidemia, Hypertension, Osteoarthritis (OA), Pneumonia Additional Past Medical History / Comment(s): HEARING LOSS RT EAR, hx ulcer, hiatal hernia, History of Any Multi-Drug Resistant Organisms: None Reported Past Surgical History: Joint Replacement, Orthopedic Surgery Additional Past Surgical History / Comment(s): LT KNEE ARTHROSCOPY, left hip replacement, EGD Past Anesthesia/Blood Transfusion Reactions: No Reported Reaction Past Psychological History: No Psychological Hx Reported Smoking Status: Former smoker Past Alcohol Use History: None Reported Past Drug Use History: None Reported - Past Family History Father Family Medical History: Deep Vein Thrombosis (DVT) Mother Family Medical History: Cancer, Diabetes Mellitus, Memory Impairment General Exam Limitations: no limitations General appearance: alert, in no apparent distress Head exam: Present: atraumatic, normocephalic, normal inspection Eye exam: Present: normal appearance, PERRL, EOMI. Absent: scleral icterus, conjunctival injection, periorbital swelling ENT exam: Present: normal exam, mucous membranes moist Neck exam: Present: normal inspection. Absent: tenderness, meningismus, lymphadenopathy Respiratory exam: Present: normal lung sounds bilaterally. Absent: respiratory distress, wheezes, rales, rhonchi, stridor Cardiovascular Exam: Present: regular rate, normal rhythm, normal heart sounds. Absent: systolic murmur, diastolic murmur, rubs, gallop, clicks GI/Abdominal exam: Present: soft, normal bowel sounds. Absent: distended, tenderness, guarding, rebound, rigid Extremities exam: Present: normal inspection, full ROM, normal capillary refill. Absent: tenderness, pedal edema, joint swelling, calf tenderness Back exam: Present: normal inspection Neurological exam: Present: alert, oriented X3, CN II-XII intact Psychiatric exam: Present: normal affect, normal mood Skin exam: Present: warm, dry, intact, normal color. Absent: rash Course Vital Signs 10/31/23 10/31/23 10/31/23 12:15 13:45 14:44 Temperature 98.1 F Pulse Rate 66 57 L 62 Respiratory 20 18 Rate Blood Pressure 166/97 132/92 O2 Sat by Pulse 97 96 Oximetry 10/31/23 10/31/23 14:53 15:15 Temperature Pulse Rate 72 76 Respiratory 18 Rate Blood Pressure 139/85 O2 Sat by Pulse 97 Oximetry - Reevaluation(s) Reevaluation #1: 10/31/23 13:[address] Emanuel completed Medical records reviewed Reevaluation #2: Patient symptoms unchanged Reevaluation #3: Patient informed of results and questions answered Studies Chest x-ray is negative for acute disease Reevaluation #4: 11/11/23 18:39 Was pt. sent in by a medical professional or institution (HUEY Parson, RADIAL DRILL O[employer]ATOR [employer], urgent care, hospital, or detention...) When possible be specific @ -no Did you speak to anyone other than the patient for history (EMS, parent, family, police, friend...)? What history was obtained from this source @ -no Did you review nursing and triage notes (agree or disagree)? Why? @ -agree Are old charts reviewed (outside hosp., previous admission, EMS record, old EKG, old radiological studies, urgent care reports/EKG's, detention records)? Report findings @ -yes Differential Diagnosis (chest pain, altered mental status, abdominal pain women, abdominal pain men, vaginal bleeding, weakness, fever, dyspnea, syncope, headache, dizziness, GI bleed, back pain, seizure, CVA, palpatations, mental health, musculoskeletal)? @ -prior EKG interpreted by me (3pts min.). @ -yes X-rays interpreted by me (1pt min.). @ -yes negative for acute disease CT interpreted by me (1pt min.). @ -no U/S interpreted by me (1pt. min.). @ -no What testing was considered but not performed or refused? (CT, X-rays, U/S, l abs)? Why? @ -none What meds were considered but not given or refused? Why? @ -none Did you discuss the management of the patient with other professionals (professionals i.e. HUEY Parson, [employer]IAL [employer], lab, RT, psych nurse, home health care social worker, foam molder, teacher, preventive medicine officer, bilingual case manager)? Give summary @ -no Was smoking cessation discussed for >3mins.? @ -no Was critical care preformed (if so, how long)? @ -no Were there social determinants of health that impacted care today? How? (Homelessness, low income, unemployed, alcoholism, drug addiction, transportation, low edu. Level, literacy, decrease access to med. care, usp, rehab)? @ -none Was there de-escalation of care discussed even if they declined (Discuss DNR or withdrawal of care, Hospice)? DNR status @ -no What co-morbidities impacted this encounter? (DM, HTN, Smoking, COPD, CAD, Cancer, CVA, ARF, Chemo, Hep., AIDS, mental health diagnosis, sleep apnea, morbid obesity)? @ -none Was patient admitted / discharged? Hospital course, mention meds given and route, prescriptions, significant lab abnormalities, going to OR and other pertinent info. @ - 58 female who presents to the ER for evaluation of chest pain, chest pain is improved here in the ER, he has had chest pain for a week without significant change. Patient was sent to ER by his family doctor for evaluation of the chest pain we have no acute findings here in the ER troponin is negative and he can be discharged home Discharge Undiagnosed new problem with uncertain prognosis? @ -no Drug Therapy requiring intensive monitoring for toxicity (Heparin, Nitro, Insulin, Cardizem)? @ -no Were any procedures done? @ -no Diagnosis/symptom? @ -Chest pain Acute, or Chronic, or Acute on Chronic? @ -Acute Uncomplicated (without systemic symptoms) or Complicated (systemic symptoms)? @ -Complicated Side effects of treatment? @ -no Exacerbation, Progression, or Severe Exacerbation? @ -exacerbation Poses a threat to life or bodily function? How? (Chest pain, [place], [place], pneumonia, PE, COPD, DKA, ARF, appy, cholecystitis, CVA, Diverticulitis, Homicidal, Suicidal, threat to staff... and all critical care pts) @ -yes with any causes of chest pain Reevaluation #5: Differential Chest Pain: Stable Angina, Unstable Angina, STEMI, NSTEMI Aortic Dissection, Pneumothorax, Musculoskeletal, Esophageal Spasm GERD, Cholecystitis, Pancreatitis, Zoster, thi s is not meant to be an all-inclusive list. Chest Pain MDM - MDM 58 female who presents to the ER for evaluation of chest pain, chest pain is im proved here in the ER, he has had chest pain for a week without significant change. Patient was sent to ER by his family doctor for evaluation of the chest pain we have no acute findings here in the ER troponin is negative and he can be discharged home Disposition Clinical Impression: Chest pain, Atypical chest pain Disposition: HOME SELF-CARE Condition: Good Instructions (If sedation given, give patient instructions): Chest Pain (ED) Is patient prescribed a controlled substance at d/c from ED?: No Referrals: Andrea Birmingham MD [Primary Care Provider] - 1-2 days Time of Disposition: 16:50
[2023-10-31 13:14] LABS: ALT 89 U/L (4-49); AST 57 U/L (17-59); African American GFR (CKD) >90 (>60 ml/min/1.73 sqM); Albumin 5.1 g/dL (3.5-5.0); Alkaline Phosphatase 92 U/L (38-126); Anion Gap 12 mmol/L; Blood Urea Nitrogen 19 mg/dL (9-20); Carbon Dioxide 21 mmol/L (22-30); Chloride 107 mmol/L (98-107); Glucose 102 mg/dL (74-99); Non-African American GFR(CKD) >90 (>60 ml/min/1.73 sqM); Sodium 140 mmol/L (137-145); Total Protein 7.8 g/dL (6.3-8.2)
[2023-10-31 13:26] LABS: Partial Thromboplastin Time 23.9 sec (22.0-30.0); Prothrombin Time 10.7 sec (10.0-12.5)
[2023-10-31] MEDS: ONDANSETRON 4 MG/2 ML VIAL IVP STA (13:46)
[2023-10-31 13:48] VITALS: RESP 18
[2023-10-31] MEDS: SODIUM CHLORIDE 0.9% 1,000 ML IV STA (13:50)
[2023-10-31] MEDS: MECLIZINE 12.5 MG TAB PO STA (13:51)
[2023-10-31 14:12] LABS: Potassium 4.5 mmol/L (3.5-5.1)
[2023-10-31] MEDS: IPRATROPIUM-ALBUTEROL 3 ML NEB INHALATION STA (14:43)
[2023-10-31 15:36] VITALS: BP 139/85; PULSE 76
== END 2023-10-31 17:10 | disposition home or self-care (01) ==
LOC: EC 12:11
DX: R07.89 Other chest pain (principal); I10 Essential (primary) hypertension; E11.9 Type 2 diabetes mellitus without complications; E78.5 Hyperlipidemia, unspecified; K21.9 Gastro-esophageal reflux disease without esophagitis; M19.90 Unspecified osteoarthritis, unspecified site; Z79.84 Long term (current) use of oral hypoglycemic drugs; Z79.899 Other long term (current) drug therapy; Z87.891 Personal history of nicotine dependence; Z20.822 Contact with and (suspected) exposure to COVID-19
CPT/HCPCS: 36415; 71046; 80053; 82375; 83735; 83880; 84484; 85025; 85379; 85610; 85730; 87636; 93005; 94640; 96360; 99285

== ENCOUNTER → 2024-12-15 | Outpatient (CLI) | payer BC ==
[~2024-12-15] MED LIST changes: -ACETAMINOPHEN TAB 500 MG TAB PO PRN; -DEXAMETHASONE SOD PHOSPHATE 4 MG/ML 1 ML VIAL IV ONE; +DOBUTamine DRIP for NUC MED 500 MG in DEXTROSE/WATER 1 250ML.BAG IV PRN; -HEPARIN SODIUM,PORCINE/PF 5,000 UNIT/0.5 ML SYRINGE SQ PRN; -HYDROmorphone 0.5 MG/0.5 ML SYRINGE IVP PRN; -ONDANSETRON 4 MG/2 ML VIAL IVP ONE
--- NOTE | 2024-12-15 17:10 | CA ---
Dobutamine Stress Echocardiogram Report Cruz Cesar Age: 59 Gender: M : 1965 Exam Date: 12/15/2024 10:18 Exam Location: [facility] Ordering Physician: Joni Ozuna MD Referring Physician: Joni Ozuna MD Photo Mask Pattern Generator: ALEX Technologist: Ht (in): 70 Wt (lb): 210 Procedure CPT: Indication: CAD ICD-9 Codes: Rhythm: Patient History: Cardiac Medications: SEE LIST Medications in past 24 hours: Contrast: Definity Total Dose (mL): 2 Stress Results Protocol: Dobutamine Peak Dose (???g/kg/min): 40 Duration (min:sec): Atropine:(mg) None Target HR: 138 Double Product: 30751 Resting HR: 65 Resting BP: 116 / 59 Peak HR: 141 Peak BP: 174 / 71 Max Predicted HR: 162 87 % Max Predicted HR Stress Summary: BP Response: Reason for Termination: Exceeded target heart rate (85% max predicted) Cardiac Symptoms: NO SYMPTOMS ECG Analysis Resting EKG: Stress EKG: Arrhythmia: Echo Analysis Base Echo Analysis: Low Echo Anaylsis: Peak Echo Analysis: Recovery Echo: MEASUREMENTS (Male/Female) Normal Values CONCLUSIONS Indication: Ischemic heart disease Dobutamine stress echo does not show any ECG or echocardiographic evidence for ischemia. Occasional PVCs and ventricular couplets noted Dr. Damian Leal MD (Electronically Signed) Final Date: 15 December 2024 17:09
== END | disposition home or self-care (01) ==
LOC: RADNMMAIN 09:32
PROVIDERS: ATTEND Internal Medicine
DX: I49.3 Ventricular premature depolarization (principal); I25.9 Chronic ischemic heart disease, unspecified; Z82.49 Family history of ischemic heart disease and other diseases of the circulatory system
CPT/HCPCS: 93351; Q9957